=== PATIENT | female | born 1970 | race Caucasian/White ===

== ENCOUNTER 2018-11-18 07:15 | Outpatient (CLI) | payer BC, SELFPAY ==
[2018-11-18 08:20] LABS: ALT 39 U/L (12-78); AST 17 U/L (15-37); Albumin 3.4 g/dL (3.4-5.0); Alkaline Phosphatase 113 U/L (46-116); Anion Gap 8.1 mmol/L (3-11); BUN 18 mg/dL (7-18); CO2 27.9 mmol/L (21.0-32.0); CREATININE 0.65 mg/dL (0.55-1.02); Calcium 8.9 mg/dL (8.5-10.1); Chloride 106 mmol/L (98-107); Cholesterol 197 mg/dL (50-200); Glucose 110 mg/dL (70-100); HDL Cholesterol 50 mg/dL (40-60); LDL CHOLESTEROL 125 mg/dL (<100); Sodium 142 mmol/L (136-145); Total Protein 6.9 g/dL (6.4-8.2); Triglyceride 149 mg/dL (30-150)
[2018-11-19 14:50] LABS: HIV-1/2 Ag & Ab Screen Negative (NEGAT)
== END 2018-11-18 07:35 ==
PROVIDERS: PCP Nurse Practitioner Family; Visit Provider Nurse Practitioner Family
DX: Z13.1 Encounter for screening for diabetes mellitus (principal); Z13.220 Encounter for screening for lipoid disorders; Z11.4 Encounter for screening for human immunodeficiency virus [HIV]
CPT/HCPCS: 36415; 80053; 80061; 83721; 87389

== ENCOUNTER 2019-07-22 01:36 | Outpatient (CLI) | payer BC, SELFPAY ==
--- NOTE | 2019-07-22 07:30 | DI.MAMMO_ITS ---
EXAM: MG MAMMO SCREENING CLINICAL HISTORY: screening,z12.31 TECHNIQUE: Mammograms were interpreted according to the usual protocol including computer analysis w [employer] CAD system, tomosynthesis and C-view imaging. COMPARISON: 2013 FINDINGS: The breasts are composed of scattered areas of fibroglandular density, breast density category B. Th ere are no dominant masses or microcalcifications. There has been no significant interval change in comparison with the previous exams. IMPRESSION: Category 1, negative mammogram. Routine yearly screening mammograms are recommended. BI-RADS Cat 1 - Negative Breast Density - Category B - Scattered areas of fibroglandular density
== END 2019-07-22 01:56 ==
PROVIDERS: PCP Nurse Practitioner Family; Visit Provider Nurse Practitioner Family
DX: Z12.31 Encounter for screening mammogram for malignant neoplasm of breast (principal)
CPT/HCPCS: 77063; 77067

== ENCOUNTER 2019-12-09 08:53 | Outpatient (CLI) | payer BC, SELFPAY ==
[2019-12-12 02:51] LABS: SARS-CoV-2 RNA Undetected (Undetected); SARS-CoV-2 Specimen Source Nasopharynx
== END 2019-12-09 09:13 ==
PROVIDERS: PCP Nurse Practitioner Family; Visit Provider Nurse Practitioner Family
DX: Z11.59 Encounter for screening for other viral diseases (principal)
CPT/HCPCS: U0003

== ENCOUNTER 2019-12-09 09:36 | Outpatient (CLI) | payer BC, SELFPAY ==
--- NOTE | 2019-12-09 10:00 | DI.RAD_ITS ---
EXAM: XR CHEST 2V PA LATERAL CLINICAL HISTORY: COUGH, R05, r/o PNA TECHNIQUE: COMPARISON: RIGHT KNEE 3 VIEWS from 12/24/2011 FINDINGS: The heart is not enlarged. Lungs are predominantly clear but in particular on the lateral view there are patchy radiodensities projected posteriorly in the lung base. This may correspond to retrocardi ac infiltrates on PA view which are very subtle. No pleural effusion seen. Mediastinal contours dev ear intact. IMPRESSION: Question left lower lobe patchy consolidation. Possible pneumonia. Follow-up radiographs requested following treatment.
== END 2019-12-09 09:56 ==
PROVIDERS: PCP Nurse Practitioner Family; Visit Provider Nurse Practitioner Family
DX: R05 Cough (principal); J98.4 Other disorders of lung
CPT/HCPCS: 71046

== ENCOUNTER 2020-02-07 07:51 | Outpatient (CLI) | payer BC, SELFPAY ==
--- NOTE | 2020-02-07 09:20 | DI.RAD_ITS ---
EXAM: XR CHEST 2V PA LATERAL CLINICAL HISTORY: 8 wk f/u s/p tx FOR PNEUMONIA, J18.9 TECHNIQUE: COMPARISON: CR XR CHEST 2V PA LATERAL from 12/09/2019 FINDINGS: The heart is not enlarged. Lungs are clear and previously described questionable left basilar pulmon maria luisa radiodensities have resolved since chest film of December 08. No pleural effusion seen. IMPRESSION: Negative examination of the chest. Resolution of previously noted left basilar infiltrates.
== END 2020-02-07 08:11 ==
PROVIDERS: PCP Nurse Practitioner Family; Visit Provider Nurse Practitioner Family
DX: J18.9 Pneumonia, unspecified organism (principal)
CPT/HCPCS: 71046

== ENCOUNTER 2021-02-23 15:51 | Outpatient (CLI) | payer BC, SELFPAY ==
[2021-02-23 16:36] LABS: Abs Immature Grans 0.01 10^3/uL (0.0-0.06); Absolute Basophil Count 0.05 10^3/uL (0.0-0.2); Absolute Eosinophil Count 0.12 10^3/uL (0.0-0.7); Absolute Lymphocyte Count 1.85 10^3/uL (1.2-3.4); Absolute Monocyte Count 0.63 10^3/uL (0.1-0.8); Basophils % 0.7; Eosinophils % 1.7; HCT 45.9 % (36.0-46.0); HGB 14.8 g/dL (11.2-15.7); Immature Grans % 0.1; Lymphocytes % 26.6; MCH 28.7 pg (27.0-33.0); MCHC 32.2 % (32.0-36.0); MPV 10.6 fL (8.0-11.0); Monocytes % 9.1; Neutrophils % 61.8; Nucleated RBC 0 %; Platelet Count 234 10^3/uL (130-400); RBC 5.16 10^6/uL (3.93-5.22); RDW-SD 42.5 fL; WBC 6.96 10^3/uL (4.4-10.8)
[2021-02-23 16:40] LABS: ESR 21 mm/hr (0-30)
[2021-02-23 17:46] LABS: C-Reactive Protein 0.48 mg/dL (0.0-0.3)
== END 2021-02-23 15:52 | disposition home or self-care (01) ==
LOC: LBO 15:52
PROVIDERS: PCP Nurse Practitioner Family; Visit Provider Nurse Practitioner Family
DX: R22.41 Localized swelling, mass and lump, right lower limb (principal); L53.8 Other specified erythematous conditions; R22.42 Localized swelling, mass and lump, left lower limb; I89.0 Lymphedema, not elsewhere classified
CPT/HCPCS: 36415; 85652; 85025; 86140

== ENCOUNTER 2021-04-18 02:09 | Outpatient (CLI) | payer BC, SELFPAY ==
--- NOTE | 2021-04-18 14:34 | DI.RAD_ITS ---
Exam(s) XR FOOT RT LIMITED EXAM: XR FOOT RT LIMITED CLINICAL HISTORY: investigate 5th toe fracture. TECHNIQUE: 2D digital imaging was performed. Two views were performed. COMPARISON: No exams were available for comparison FINDINGS: BONES: There is a mildly displaced fracture extending transversely through the the distal shaft of th e proximal phalanx of the 5th toe. It is not appear to involve the articular surface.. No additiona l fractures. No bony destructive lesion is seen. Heel spurs. JOINTS: No dislocation present. SOFT TISSUE: Normal. IMPRESSION: Fracture of the proximal phalanx of the 5th toe. DATA REPOSITORY: RADIATION DOSE DELIVERED:
== END 2021-04-18 02:29 ==
PROVIDERS: PCP Nurse Practitioner Family; Visit Provider Nurse Practitioner Family
DX: S92.511A Displaced fracture of proximal phalanx of right lesser toe(s), initial encounter for closed fracture (principal); X58.XXXA Exposure to other specified factors, initial encounter
CPT/HCPCS: 73620

== ENCOUNTER 2021-10-10 03:25 | Outpatient (CLI) | payer BC, SELFPAY ==
[2021-10-10 08:02] LABS: Anion Gap 8.6 mmol/L (3-11); BUN 20 mg/dL (7-18); CO2 27.4 mmol/L (21.0-32.0); CREATININE 0.8 mg/dL (0.55-1.02); Calcium 8.7 mg/dL (8.5-10.1); Chloride 106 mmol/L (98-107); Glucose 103 mg/dL (74-106); Sodium 142 mmol/L (136-145)
[2021-10-10 08:20] LABS: Calculated LDL 118 mg/dL (<100); Cholesterol 194 mg/dL (<200); HDL Cholesterol 59 mg/dL (40-60); Triglyceride 88 mg/dL (<150)
[2021-10-11 10:30] LABS: Hepatitis C Ab w Rflx HCV PCR Negative (Negative)
== END 2021-10-10 03:26 | disposition home or self-care (01) ==
LOC: LBO 03:25
PROVIDERS: PCP Nurse Practitioner Family; Visit Provider Nurse Practitioner Family
DX: Z11.59 Encounter for screening for other viral diseases (principal); E78.5 Hyperlipidemia, unspecified; Z13.1 Encounter for screening for diabetes mellitus
CPT/HCPCS: 36415; 80048; 80061; 86803